=== PATIENT | female | born 1940 | race Caucasian/White ===

== ENCOUNTER → 2017-03-30 | Outpatient (CLI) | payer MEDICARE, OTHER ==
--- NOTE | 2017-03-31 10:53 | MM ---
Reason for exam: screening (asymptomatic). Last mammogram was performed 1 year ago. History: Patient is postmenopausal. Took hormonal contraceptives for 4 years beginning at age 22. Took estrogen for 10 years beginning at age 51. Took progesterone for 10 years beginning at age 51. Physical Findings: A clinical breast exam by your physician is recommended on an annual basis and results should be correlated with mammographic findings. MG 3D Screening Mammo W/Cad Bilateral CC and MLO view(s) were taken. Prior study comparison: March 26, 2016, bilateral MG 3d screening mammo w/cad. March 21, 2015, bilateral MG screening mammo w CAD. There are scattered fibroglandular densities. Focal asymmetry upper central right breast is stable. No significant changes when compared with prior studies. ASSESSMENT: Benign, BI-RAD 2 RECOMMENDATION: Routine screening mammogram of both breasts in 1 year.
== END | disposition home or self-care (01) ==
LOC: RADMAMWWP 10:40
PROVIDERS: ATTEND Obstetrics & Gynecology
DX: Z12.31 Encounter for screening mammogram for malignant neoplasm of breast (principal)
CPT/HCPCS: 77063; G0202

== ENCOUNTER 2017-03-31 15:27 | Observation (INO) | payer MEDICARE, OTHER ==
[2017-03-31] MEDS ORDERED: SODIUM CHLORIDE 0.9% 1,000 ML IV STA (15:53)
[2017-03-31] MEDS ORDERED: SODIUM CHLORIDE 0.9% 500 ML IV STA (15:53)
--- NOTE | 2017-03-31 16:03 | ED ---
General Adult HPI - General Chief complaint: Syncope Stated complaint: Syncope Time Seen by Provider: 03/31/17 15:52 Source: patient, RN notes reviewed, old records reviewed Mode of arrival: wheelchair Limitations: no limitations - History of Present Illness Initial comments: This is a 76-year-old female the ER for evaluation of significant syncopal. Patient states she has history of similar event before bed this time denies history of headache chest pain shortness of breath or abdominal pain. Patient' s at bedside asystole for event. There eating breakfast today. Patient became unresponsive and he believes stop breathing, she did mildly change colors but he states that time he did check a blood pressure she had a blood pressure. He did the resuscitation with breathing and CPR. States it lasted for about 15 minutes and now patient's pertinent to emergency room. Patient is currently wide-awake and alert able to answer questions appropriately and has no complaints - Related Data Home Medications Medication Instructions Recorded Confirmed Ascorbic Acid [Vitamin C] 500 mg PO DAILY 03/31/17 03/31/17 Aspirin 325 mg PO DAILY 03/31/17 03/31/17 Atorvastatin [Lipitor] 10 mg PO HS 03/31/17 03/31/17 Calcium Carbonate [Calcium] 600 mg PO BID 03/31/17 03/31/17 Cholecalciferol [Vitamin D3] 1,000 unit PO DAILY 03/31/17 03/31/17 Glucosamine Sulfate 500 mg PO HS 03/31/17 03/31/17 Multivitamins, Thera [Multivitamin 1 tab PO DAILY 03/31/17 03/31/17 (formulary)] [place]-3 Fatty Acids/Fish Oil [Fish 1 cap PO DAILY 03/31/17 03/31/17 Oil 1,000 mg Softgel] Omeprazole [PriLOSEC] 20 mg PO QAM 03/31/17 03/31/17 Phytonadione [Vitamin K] 5 mg PO DAILY 03/31/17 03/31/17 Soy Isoflavone 50 mg PO DAILY 03/31/17 03/31/17 Ubiquinol 100 mg PO DAILY 03/31/17 03/31/17 Vitamin E (Dl,Tocopheryl Acet) 400 unit PO DAILY 03/31/17 03/31/17 [Vitamin E] Zinc 50 mg PO DAILY 03/31/17 03/31/17 Allergies Allergy/AdvReac Type Severity Reaction Status Date / Time No Known Allergies Allergy Verified 03/31/17 16:26 Review of Systems ROS Statement: Those systems with pertinent positive or pertinent negative responses have been documented in the HPI. ROS Other: All systems not noted in ROS Statement are negative. Past Medical History Past Medical History: GERD/Reflux, Hyperlipidemia History of Any Multi-Drug Resistant Organisms: None Reported Past Surgical History: No Surgical Hx Reported Past Psychological History: No Psychological Hx Reported Smoking Status: Never smoker Past Alcohol Use History: None Reported Past Drug Use History: None Reported General Exam Limitations: no limitations General appearance: alert, in no apparent distress Head exam: Present: atraumatic, normocephalic, normal inspection Eye exam: Present: normal appearance, PERRL, EOMI. Absent: scleral icterus, conjunctival injection, periorbital swelling ENT exam: Present: normal exam, mucous membranes moist Neck exam: Present: normal inspection. Absent: tenderness, meningismus, lymphadenopathy Respiratory exam: Present: normal lung sounds bilaterally. Absent: respiratory distress, wheezes, rales, rhonchi, stridor Cardiovascular Exam: Present: regular rate, normal rhythm, normal heart sounds. Absent: systolic murmur, diastolic murmur, rubs, gallop, clicks GI/Abdominal exam: Present: soft, normal bowel sounds. Absent: distended, tenderness, guarding, rebound, rigid Extremities exam: Present: normal inspection, full ROM, normal capillary refill. Absent: tenderness, pedal edema, joint swelling, calf tenderness Back exam: Present: normal inspection Neurological exam: Present: alert, oriented X3, CN II-XII intact Psychiatric exam: Present: normal affect, normal mood Skin exam: Present: warm, dry, intact, normal color. Absent: rash Course Vital Signs 03/31/17 03/31/17 15:31 16:09 Temperature 98.0 F Pulse Rate 83 80 Respiratory 18 19 Rate Blood Pressure 133/64 142/66 O2 Sat by Pulse 99 97 Oximetry - Reevaluation(s) Reevaluation #1: 03/31/17 17:18 no syncopal events and no change in symptoms, asymptomatic EKG Findings - EKG Comments: EKG Findings:: EKG shows normal sinus a rate of 81, OH 172, QRS 72, QTc 462 Medical Decision Making - Medical Decision Making 76 female to the ED after syncopal event, per family member gave CPR, patient currently without complaint, ok for admission and cardiac evaluation - Lab Data Result diagrams: 03/31/17 16:06 03/31/17 16:06 Lab Results 03/31/17 03/31/17 03/31/17 Range/Units 16:03 16:06 16:06 WBC 6.0 (3.8-10.6) k/uL RBC 4.64 (3.80-5.40) m/uL Hgb 14.2 (11.4-16.0) gm/dL Hct 42.5 (34.0-46.0) % MCV 91.8 (80.0-100.0) fL MCH 30.7 (25.0-35.0) pg MCHC 33.4 (31.0-37.0) g/dL RDW 14.5 (11.5-15.5) % Plt Count 168 (150-450) k/uL Neutrophils % 90 % Lymphocytes % 4 % Monocytes % 4 % Eosinophils % 1 % Basophils % 0 % Neutrophils # 5.4 (1.3-7.7) k/uL Lymphocytes # 0.3 L (1.0-4.8) k/uL Monocytes # 0.2 (0-1.0) k/uL Eosinophils # 0.0 (0-0.7) k/uL Basophils # 0.0 (0-0.2) k/uL PT (9.0-12.0) sec INR (<1.2) APTT (22.0-30.0) sec D-Dimer (<0.60) mg/L FEU Sodium (137-145) mmol/L Potassium (3.5-5.1) mmol/L Chloride (98-107) mmol/L Carbon Dioxide (22-30) mmol/L Anion Gap mmol/L BUN (7-17) mg/dL Creatinine (0.52-1.04) mg/dL Est GFR (MDRD) Af Amer (>60 ml/min/1.73 sqM) Est GFR (MDRD) Non-Af (>60 ml/min/1.73 sqM) Glucose (74-99) mg/dL POC Glucose (mg/dL) 129 H (75-99) mg/dL POC Glu Paralegal Assistant ID [place] Plasma Lactic Acid Tor (0.7-2.0) mmol/L Calcium (8.4-10.2) mg/dL Phosphorus (2.5-4.5) mg/dL Magnesium (1.6-2.3) mg/dL Total Bilirubin (0.2-1.3) mg/dL AST (14-36) U/L ALT (9-52) U/L Alkaline Phosphatase (38-126) U/L Total Creatine Kinase 66 (30-135) U/L CK-MB (CK-2) 1.0 (0.0-2.4) ng/mL CK-MB (CK-2) Rel Index 1.5 Troponin I <0.012 (0.000-0.034) ng/mL NT-Pro-B Natriuret Pep pg/mL Total Protein (6.3-8.2) g/dL Albumin (3.5-5.0) g/dL Urine Color Urine Appearance (Clear) Urine pH (5.0-8.0) Ur Specific [place] (1.001-1.035) Urine Protein (Negative) Urine Glucose (UA) (Negative) Urine Ketones (Negative) Urine Blood (Negative) Urine Nitrite (Negative) Urine Bilirubin (Negative) Urine Urobilinogen (<2.0) mg/dL Ur Leukocyte Esterase (Negative) 03/31/17 03/31/17 03/31/17 Range/Units 16:06 16:06 16:06 WBC (3.8-10.6) k/uL RBC (3.80-5.40) m/uL Hgb (11.4-16.0) gm/dL Hct (34.0-46.0) % MCV (80.0-100.0) fL MCH (25.0-35.0) pg MCHC (31.0-37.0) g/dL RDW (11.5-15.5) % Plt Count (150-450) k/uL Neutrophils % % Lymphocytes % % Monocytes % % Eosinophils % % Basophils % % Neutrophils # (1.3-7.7) k/uL Lymphocytes # (1.0-4.8) k/uL Monocytes # (0-1.0) k/uL Eosinophils # (0-0.7) k/uL Basophils # (0-0.2) k/uL PT 10.5 (9.0-12.0) sec INR 1.0 (<1.2) APTT 22.8 (22.0-30.0) sec D-Dimer 0.56 (<0.60) mg/L FEU Sodium 138 (137-145) mmol/L Potassium 4.5 (3.5-5.1) mmol/L Chloride 102 (98-107) mmol/L Carbon Dioxide 24 (22-30) mmol/L Anion Gap 12 mmol/L BUN 16 (7-17) mg/dL Creatinine 0.78 (0.52-1.04) mg/dL Est GFR (MDRD) Af Amer >60 (>60 ml/min/1.73 sqM) Est GFR (MDRD) Non-Af >60 (>60 ml/min/1.73 sqM) Glucose 114 H (74-99) mg/dL POC Glucose (mg/dL) (75-99) mg/dL POC Glu Paralegal Assistant ID Plasma Lactic Acid Tor (0.7-2.0) mmol/L Calcium 9.1 (8.4-10.2) mg/dL Phosphorus 4.0 (2.5-4.5) mg/dL Magnesium 2.1 (1.6-2.3) mg/dL Total Bilirubin 0.6 (0.2-1.3) mg/dL AST 28 (14-36) U/L ALT 39 (9-52) U/L Alkaline Phosphatase 53 (38-126) U/L Total Creatine Kinase (30-135) U/L CK-MB (CK-2) (0.0-2.4) ng/mL CK-MB (CK-2) Rel Index Troponin I (0.000-0.034) ng/mL NT-Pro-B Natriuret Pep 127 pg/mL Total Protein 7.5 (6.3-8.2) g/dL Albumin 4.4 (3.5-5.0) g/dL Urine Color Urine Appearance (Clear) Urine pH (5.0-8.0) Ur Specific [place] (1.001-1.035) Urine Protein (Negative) Urine Glucose (UA) (Negative) Urine Ketones (Negative) Urine Blood (Negative) Urine Nitrite (Negative) Urine Bilirubin (Negative) Urine Urobilinogen (<2.0) mg/dL Ur Leukocyte Esterase (Negative) 03/31/17 03/31/17 Range/Units 16:11 16:43 WBC (3.8-10.6) k/uL RBC (3.80-5.40) m/uL Hgb (11.4-16.0) gm/dL Hct (34.0-46.0) % MCV (80.0-100.0) fL MCH (25.0-35.0) pg MCHC (31.0-37.0) g/dL RDW (11.5-15.5) % Plt Count (150-450) k/uL Neutrophils % % Lymphocytes % % Monocytes % % Eosinophils % % Basophils % % Neutrophils # (1.3-7.7) k/uL Lymphocytes # (1.0-4.8) k/uL Monocytes # (0-1.0) k/uL Eosinophils # (0-0.7) k/uL Basophils # (0-0.2) k/uL PT (9.0-12.0) sec INR (<1.2) APTT (22.0-30.0) sec D-Dimer (<0.60) mg/L FEU Sodium (137-145) mmol/L Potassium (3.5-5.1) mmol/L Chloride (98-107) mmol/L Carbon Dioxide (22-30) mmol/L Anion Gap mmol/L BUN (7-17) mg/dL Creatinine (0.52-1.04) mg/dL Est GFR (MDRD) Af Amer (>60 ml/min/1.73 sqM) Est GFR (MDRD) Non-Af (>60 ml/min/1.73 sqM) Glucose (74-99) mg/dL POC Glucose (mg/dL) (75-99) mg/dL POC Glu Paralegal Assistant ID Plasma Lactic Acid Tor 1.0 (0.7-2.0) mmol/L Calcium (8.4-10.2) mg/dL Phosphorus (2.5-4.5) mg/dL Magnesium (1.6-2.3) mg/dL Total Bilirubin (0.2-1.3) mg/dL AST (14-36) U/L ALT (9-52) U/L Alkaline Phosphatase (38-126) U/L Total Creatine Kinase (30-135) U/L CK-MB (CK-2) (0.0-2.4) ng/mL CK-MB (CK-2) Rel Index Troponin I (0.000-0.034) ng/mL NT-Pro-B Natriuret Pep pg/mL Total Protein (6.3-8.2) g/dL Albumin (3.5-5.0) g/dL Urine Color Yellow Urine Appearance Clear (Clear) Urine pH 6.5 (5.0-8.0) Ur Specific [place] 1.017 (1.001-1.035) Urine Protein Trace H (Negative) Urine Glucose (UA) Negative (Negative) Urine Ketones 2+ H (Negative) Urine Blood Negative (Negative) Urine Nitrite Negative (Negative) Urine Bilirubin Negative (Negative) Urine Urobilinogen <2.0 (<2.0) mg/dL Ur Leukocyte Esterase Negative (Negative) Disposition Clinical Impression: Vasovagal syncope Disposition: HOME SELF-CARE Condition: Good Instructions: Syncope (ED) Referrals: Camden Allred MD [Primary Care Provider] - 1-2 days
[2017-03-31 16:06] LABS: Glucose,Whole Blood 129 mg/dL (75-99)
[2017-03-31 16:21] LABS: Basophils % (A) 0 %; CH 31.4; CHCM 34.4; Eosinophils % (A) 1 %; HCT 42.5 % (34.0-46.0); HDW 2.25; HGB 14.2 gm/dL (11.4-16.0); Luc # (Auto) 0.07; Luc % (Auto) 1; Lymphocytes # (A) 0.3 k/uL (1.0-4.8); Lymphocytes % (A) 4 %; MCH 30.7 pg (25.0-35.0); MCHC 33.4 g/dL (31.0-37.0); MCV 91.8 fL (80.0-100.0); Mean Platelet Volume 7.8; Monocytes # (A) 0.2 k/uL (0-1.0); Monocytes % (A) 4 %; Neutrophils # (A) 5.4 k/uL (1.3-7.7); Neutrophils % (A) 90 %; RBC 4.64 m/uL (3.80-5.40); RDW 14.5 % (11.5-15.5); WBC (Perox) 6.63
[2017-03-31 16:38] LABS: ALT 39 U/L (9-52); AST 28 U/L (14-36); Alkaline Phosphatase 53 U/L (38-126); Anion Gap 12 mmol/L; Blood Urea Nitrogen 16 mg/dL (7-17); Calcium 9.1 mg/dL (8.4-10.2); Carbon Dioxide 24 mmol/L (22-30); Chloride 102 mmol/L (98-107); Glucose 114 mg/dL (74-99); Magnesium 2.1 mg/dL (1.6-2.3); Non-African American GFR(MDRD) >60 (>60 ml/min/1.73 sqM); Potassium 4.5 mmol/L (3.5-5.1); Sodium 138 mmol/L (137-145); Total Bilirubin 0.6 mg/dL (0.2-1.3); Total Protein 7.5 g/dL (6.3-8.2)
[2017-03-31 16:41] LABS: Creatine Kinase 66 U/L (30-135)
[2017-03-31 16:42] LABS: Partial Thromboplastin Time 22.8 sec (22.0-30.0); Prothrombin Time 10.5 sec (9.0-12.0)
[2017-03-31 16:53] LABS: Troponin I <0.012 ng/mL (0.000-0.034)
[2017-03-31 16:53] LABS: Appearance,Urine Clear (Clear); Bilirubin,Urine Negative (Negative); Glucose,Urine (UA) Negative (Negative); Ketones,Urine 2+ (Negative); Leukocyte Esterase,Urine Negative (Negative); Nitrite,Urine Negative (Negative); PH, Urine 6.5 (5.0-8.0); Protein,Urine Trace (Negative); Specific Gravity,Urine 1.017 (1.001-1.035); UA Billing (MACRO vs. MICRO) CHEM; Urobilinogen,Urine <2.0 mg/dL (<2.0)
[2017-03-31] MEDS ORDERED: NITROGLYCERIN SL TABS 0.4 MG TAB SUBLINGUAL PRN (17:11)
--- NOTE | 2017-03-31 17:19 | ED ---
Medical Decision Making - Lab Data Result diagrams: 03/31/17 16:06 03/31/17 16:06 Lab Results 03/31/17 03/31/17 03/31/17 Range/Units 16:03 16:06 16:06 WBC 6.0 (3.8-10.6) k/uL RBC 4.64 (3.80-5.40) m/uL Hgb 14.2 (11.4-16.0) gm/dL Hct 42.5 (34.0-46.0) % MCV 91.8 (80.0-100.0) fL MCH 30.7 (25.0-35.0) pg MCHC 33.4 (31.0-37.0) g/dL RDW 14.5 (11.5-15.5) % Plt Count 168 (150-450) k/uL Neutrophils % 90 % Lymphocytes % 4 % Monocytes % 4 % Eosinophils % 1 % Basophils % 0 % Neutrophils # 5.4 (1.3-7.7) k/uL Lymphocytes # 0.3 L (1.0-4.8) k/uL Monocytes # 0.2 (0-1.0) k/uL Eosinophils # 0.0 (0-0.7) k/uL Basophils # 0.0 (0-0.2) k/uL PT (9.0-12.0) sec INR (<1.2) APTT (22.0-30.0) sec D-Dimer (<0.60) mg/L FEU Sodium (137-145) mmol/L Potassium (3.5-5.1) mmol/L Chloride (98-107) mmol/L Carbon Dioxide (22-30) mmol/L Anion Gap mmol/L BUN (7-17) mg/dL Creatinine (0.52-1.04) mg/dL Est GFR (MDRD) Af Amer (>60 ml/min/1.73 sqM) Est GFR (MDRD) Non-Af (>60 ml/min/1.73 sqM) Glucose (74-99) mg/dL POC Glucose (mg/dL) 129 H (75-99) mg/dL POC Glu Marketing Technology Coordinator ID [place], [place] Plasma Lactic Acid Tor (0.7-2.0) mmol/L Calcium (8.4-10.2) mg/dL Phosphorus (2.5-4.5) mg/dL Magnesium (1.6-2.3) mg/dL Total Bilirubin (0.2-1.3) mg/dL AST (14-36) U/L ALT (9-52) U/L Alkaline Phosphatase (38-126) U/L Total Creatine Kinase 66 (30-135) U/L CK-MB (CK-2) 1.0 (0.0-2.4) ng/mL CK-MB (CK-2) Rel Index 1.5 Troponin I <0.012 (0.000-0.034) ng/mL NT-Pro-B Natriuret Pep pg/mL Total Protein (6.3-8.2) g/dL Albumin (3.5-5.0) g/dL Urine Color Urine Appearance (Clear) Urine pH (5.0-8.0) Ur Specific [place] (1.001-1.035) Urine Protein (Negative) Urine Glucose (UA) (Negative) Urine Ketones (Negative) Urine Blood (Negative) Urine Nitrite (Negative) Urine Bilirubin (Negative) Urine Urobilinogen (<2.0) mg/dL Ur Leukocyte Esterase (Negative) 03/31/17 03/31/17 03/31/17 Range/Units 16:06 16:06 16:06 WBC (3.8-10.6) k/uL RBC (3.80-5.40) m/uL Hgb (11.4-16.0) gm/dL Hct (34.0-46.0) % MCV (80.0-100.0) fL MCH (25.0-35.0) pg MCHC (31.0-37.0) g/dL RDW (11.5-15.5) % Plt Count (150-450) k/uL Neutrophils % % Lymphocytes % % Monocytes % % Eosinophils % % Basophils % % Neutrophils # (1.3-7.7) k/uL Lymphocytes # (1.0-4.8) k/uL Monocytes # (0-1.0) k/uL Eosinophils # (0-0.7) k/uL Basophils # (0-0.2) k/uL PT 10.5 (9.0-12.0) sec INR 1.0 (<1.2) APTT 22.8 (22.0-30.0) sec D-Dimer 0.56 (<0.60) mg/L FEU Sodium 138 (137-145) mmol/L Potassium 4.5 (3.5-5.1) mmol/L Chloride 102 (98-107) mmol/L Carbon Dioxide 24 (22-30) mmol/L Anion Gap 12 mmol/L BUN 16 (7-17) mg/dL Creatinine 0.78 (0.52-1.04) mg/dL Est GFR (MDRD) Af Amer >60 (>60 ml/min/1.73 sqM) Est GFR (MDRD) Non-Af >60 (>60 ml/min/1.73 sqM) Glucose 114 H (74-99) mg/dL POC Glucose (mg/dL) (75-99) mg/dL POC Glu Marketing Technology Coordinator ID Plasma Lactic Acid Tor (0.7-2.0) mmol/L Calcium 9.1 (8.4-10.2) mg/dL Phosphorus 4.0 (2.5-4.5) mg/dL Magnesium 2.1 (1.6-2.3) mg/dL Total Bilirubin 0.6 (0.2-1.3) mg/dL AST 28 (14-36) U/L ALT 39 (9-52) U/L Alkaline Phosphatase 53 (38-126) U/L Total Creatine Kinase (30-135) U/L CK-MB (CK-2) (0.0-2.4) ng/mL CK-MB (CK-2) Rel Index Troponin I (0.000-0.034) ng/mL NT-Pro-B Natriuret Pep 127 pg/mL Total Protein 7.5 (6.3-8.2) g/dL Albumin 4.4 (3.5-5.0) g/dL Urine Color Urine Appearance (Clear) Urine pH (5.0-8.0) Ur Specific [place] (1.001-1.035) Urine Protein (Negative) Urine Glucose (UA) (Negative) Urine Ketones (Negative) Urine Blood (Negative) Urine Nitrite (Negative) Urine Bilirubin (Negative) Urine Urobilinogen (<2.0) mg/dL Ur Leukocyte Esterase (Negative) 09/13/17 09/13/17 Range/Units 16:11 16:43 WBC (3.8-10.6) k/uL RBC (3.80-5.40) m/uL Hgb (11.4-16.0) gm/dL Hct (34.0-46.0) % MCV (80.0-100.0) fL MCH (25.0-35.0) pg MCHC (31.0-37.0) g/dL RDW (11.5-15.5) % Plt Count (150-450) k/uL Neutrophils % % Lymphocytes % % Monocytes % % Eosinophils % % Basophils % % Neutrophils # (1.3-7.7) k/uL Lymphocytes # (1.0-4.8) k/uL Monocytes # (0-1.0) k/uL Eosinophils # (0-0.7) k/uL Basophils # (0-0.2) k/uL PT (9.0-12.0) sec INR (<1.2) APTT (22.0-30.0) sec D-Dimer (<0.60) mg/L FEU Sodium (137-145) mmol/L Potassium (3.5-5.1) mmol/L Chloride (98-107) mmol/L Carbon Dioxide (22-30) mmol/L Anion Gap mmol/L BUN (7-17) mg/dL Creatinine (0.52-1.04) mg/dL Est GFR (MDRD) Af Amer (>60 ml/min/1.73 sqM) Est GFR (MDRD) Non-Af (>60 ml/min/1.73 sqM) Glucose (74-99) mg/dL POC Glucose (mg/dL) (75-99) mg/dL POC Glu Marketing Technology Coordinator ID Plasma Lactic Acid Tor 1.0 (0.7-2.0) mmol/L Calcium (8.4-10.2) mg/dL Phosphorus (2.5-4.5) mg/dL Magnesium (1.6-2.3) mg/dL Total Bilirubin (0.2-1.3) mg/dL AST (14-36) U/L ALT (9-52) U/L Alkaline Phosphatase (38-126) U/L Total Creatine Kinase (30-135) U/L CK-MB (CK-2) (0.0-2.4) ng/mL CK-MB (CK-2) Rel Index Troponin I (0.000-0.034) ng/mL NT-Pro-B Natriuret Pep pg/mL Total Protein (6.3-8.2) g/dL Albumin (3.5-5.0) g/dL Urine Color Yellow Urine Appearance Clear (Clear) Urine pH 6.5 (5.0-8.0) Ur Specific [place] 1.017 (1.001-1.035) Urine Protein Trace H (Negative) Urine Glucose (UA) Negative (Negative) Urine Ketones 2+ H (Negative) Urine Blood Negative (Negative) Urine Nitrite Negative (Negative) Urine Bilirubin Negative (Negative) Urine Urobilinogen <2.0 (<2.0) mg/dL Ur Leukocyte Esterase Negative (Negative) Disposition Clinical Impression: Vasovagal syncope Disposition: ADMITTED IP TO THIS HOSP Condition: Good Instructions: Syncope (ED) Referrals: Camden Allred MD [Primary Care Provider] - 1-2 days
[2017-03-31] MEDS ORDERED: ONDANSETRON 4 MG/2 ML VIAL IVP PRN (17:49)
[2017-03-31] MEDS ORDERED: NALOXONE 0.4 MG/ML 1 ML VIAL IV PRN (17:49)
--- NOTE | 2017-03-31 18:06 | P.HPIM ---
History of Present Illness H&P Date: 03/31/17 Chief Complaint: Syncopal episode The patient is a 76-year-old female with a past medical history of GERD who presented to the ER by EMS after having a syncopal episode earlier today Apparently the patient complained of not feeling well early this morning, and within minutes she reportedly passed out and stopped breathing per her , The patient was not coherent, he reports a rattle oldest like agonal breaths and proceeded to do chest compressions and rescue breaths, he reports The patient came to and regained consciousness and seemed coherent, but sleepy and tired. She denies any limb movements, or loss of bowel or bladder control Patient does report some dizziness and lightheadedness prior to the episode. During the 5-10 minute episode patient was noted to extremely cold extremities and sweaty forehead per the . Gaining consciousness the patient was extremely nauseated and had an episode of vomiting. The patient denied any chest pain Shortness of air and otherwise has no complaints. Had this episode previously several years ago. The ER she had EKG, and normal lab work, noted normal troponins. EKG was normal sinus rhythm Review of Systems All 14 point review systems negative except per HPI Past Medical History Past Medical History: GERD/Reflux, Hyperlipidemia History of Any Multi-Drug Resistant Organisms: None Reported Past Surgical History: No Surgical Hx Reported Past Psychological History: No Psychological Hx Reported Smoking Status: Never smoker Past Alcohol Use History: None Reported Past Drug Use History: None Reported Medications and Allergies Home Medications Medication Instructions Recorded Confirmed Type Ascorbic Acid [Vitamin C] 500 mg PO DAILY 03/31/17 03/31/17 History Aspirin 325 mg PO DAILY 03/31/17 03/31/17 History Atorvastatin [Lipitor] 10 mg PO HS 03/31/17 03/31/17 History Calcium Carbonate [Calcium] 600 mg PO BID 03/31/17 03/31/17 History Cholecalciferol [Vitamin D3] 1,000 unit PO DAILY 03/31/17 03/31/17 History Glucosamine Sulfate 500 mg PO HS 03/31/17 03/31/17 History Multivitamins, Thera [Multivitamin 1 tab PO DAILY 03/31/17 03/31/17 History (formulary)] [place]-3 Fatty Acids/Fish Oil [Fish 1 cap PO DAILY 03/31/17 03/31/17 History Oil 1,000 mg Softgel] Omeprazole [PriLOSEC] 20 mg PO QAM 03/31/17 03/31/17 History Phytonadione [Vitamin K] 5 mg PO DAILY 03/31/17 03/31/17 History Soy Isoflavone 50 mg PO DAILY 03/31/17 03/31/17 History Ubiquinol 100 mg PO DAILY 03/31/17 03/31/17 History Vitamin E (Dl,Tocopheryl Acet) 400 unit PO DAILY 03/31/17 03/31/17 History [Vitamin E] Zinc 50 mg PO DAILY 03/31/17 03/31/17 History Allergies Allergy/AdvReac Type Severity Reaction Status Date / Time No Known Allergies Allergy Verified 03/31/17 16:26 Physical Exam Vitals: Vital Signs Temp Pulse Resp BP Pulse Ox 03/31/17 16:09 80 19 142/66 97 03/31/17 15:31 98.0 F 83 18 133/64 99 Intake and Output 03/31/17 03/31/17 03/31/17 06:59 14:59 22:59 Other: Weight 57.606 kg Patient Weight 04/01/17 06:59 Weight 57.606 kg Constitutional: No acute distress, conversant, pleasant Eyes: Anicteric sclerae, moist conjunctiva, no lid-lag, PERRLA ENMT: NC/AT,Oropharynx clear, no erythema, exudates Neck:Supple, FROM, no masses, or JVD, No carotid bruits; No thyromegaly Lungs: Clear to auscultation, Clear to percussion, Normal respiratory effort, no accessory muscle use Cardiovascular: Heart regular in rate and rhythm, No murmurs, gallops, or rubs no peripheral edema Abdominal: Soft Nontender, nom distended, no guarding, no rebound or rigidity, Normoactive bowel sounds No hepatomegaly, No splenomegaly, No palpable mass No abdominal wall hernia noted Skin: Normal temperature, tone, texture, turgor, No induration No subcutaneous nodules, No rash, lesions, No ulcers Extremities:No digital cyanosis No clubbing, Pedal pulses intact and symmetrical Radial pulses intact and symmetrical Normal gait and station, No calf tenderness Psychiatric: Alert and oriented to person, place and time, Appropriate affect Intact judgement Neuro: Muscles Strength 5/5 in all 4 extremities, Sensation to light touch grossly present throughout, Cranial nerves II-XII grossly intact. No focal sensory deficits Results CBC & Chem 7: 03/31/17 16:06 03/31/17 16:06 Labs: Abnormal Lab Results - Last 24 Hours (Table) 03/31/17 03/31/17 03/31/17 Range/Units 16:03 16:06 16:06 Lymphocytes # 0.3 L (1.0-4.8) k/uL Glucose 114 H (74-99) mg/dL POC Glucose (mg/dL) 129 H (75-99) mg/dL Urine Protein (Negative) Urine Ketones (Negative) 03/31/17 Range/Units 16:43 Lymphocytes # (1.0-4.8) k/uL Glucose (74-99) mg/dL POC Glucose (mg/dL) (75-99) mg/dL Urine Protein Trace H (Negative) Urine Ketones 2+ H (Negative) Thrombosis Risk Factor Assmnt - DVT/VTE Prophylaxis DVT/VTE Prophylaxis: Mechanical Prophylaxis ordered, Low risk, early ambulation encouraged Assessment and Plan (1) Vasovagal syncope Status: Acute (2) GERD (gastroesophageal reflux disease) Status: Acute Plan: Placed in observation anticipate a less than to midnight stay for workup of her vasovagal syncope, patient is placed in observation on telemetry Continue workup by ordering a CT of the head, carotid Dopplers, 2-D echocardiogram with bubble study and orthostatic vital signs. Cardiology Was apparently consulted from the ED follow up with the patient tomorrow. We' ll continue to follow her clinical course Time with Patient: Greater than 30
--- NOTE | 2017-03-31 18:12 | CT ---
EXAMINATION TYPE: CT brain wo con DATE OF EXAM: 03/31/2017 COMPARISON: NONE HISTORY: Patient complains of syncopeal episode today. CT DLP: 1002 mGycm Automated exposure control for dose reduction was used. FINDINGS: Ventricles have normal size. There is no mass effect nor midline shift. There is no sign of intracran ial hemorrhage. There is hypodensity in the white matter of the insula of both temporal lobes. Calvar ium is intact. 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 NO ACUTE INTRACRANIAL ABNORMALITY.
--- NOTE | 2017-03-31 18:19 | XR ---
EXAMINATION TYPE: XR chest 1V DATE OF EXAM: 03/31/2017 COMPARISON: 05/22/2010 syncope HISTORY: Syncope TECHNIQUE: Single frontal view of the chest is obtained. FINDINGS: There is no heart failure nor confluent pneumonic infiltrate. Costophrenic angles are vivian r. There are chest leads. Heart size is normal. IMPRESSION: No cardiopulmonary disease. No change.
[2017-03-31] MEDS ORDERED: ATORVASTATIN 10 MG TAB PO SCH (21:00)
--- NOTE | 2017-03-31 21:05 | US ---
EXAMINATION TYPE: US carotid duplex BILAT DATE OF EXAM: 03/31/2017 COMPARISON: NONE CLINICAL HISTORY: syncope. EXAM MEASUREMENTS: RIGHT: Peak Systolic Velocity (PSV) cm/sec ----- Right CCA: 71.1 ----- Right ICA: 167.7 ----- Right ECA: 132.2 ICA/CCA ratio: 2.3 RIGHT: End Diastole cm/sec ----- Right CCA: 12.9 ----- Right ICA: 41.6 ----- Right ECA: 9.1 LEFT: Peak Systolic Velocity (PSV) cm/sec ----- Left CCA: 60.7 ----- Left ICA: 73.9 ----- Left ECA: 89.8 ICA/CCA ratio: 1.2 LEFT: End Diastole cm/sec ----- Left CCA: 13.1 ----- Left ICA: 17.1 ----- Left ECA: 9.1 VERTEBRALS (direction of flow): Right Vertebral: Antegrade Left Vertebral: Antegrade IMPRESSION: There is antegrade flow in the vertebral arteries. The images and measurements suggest 50-70% stenosis in the right internal carotid artery and close to 25% stenosis in the left internal carotid artery. Criteria for Assigning % of Stenosis / Diameter reduction (Estimation based on the indirect measurements of the internal carotid artery velocities (ICA PSV). 1. Normal (no stenosis)=ICA PSV < 125 cm/s: ratio < 2.0: ICA EDV<40 cm/s. 2. Less than 50% stenosis=ICA PSV < 125 cm/s: ratio < 2.0: ICA EDV<40 cm/s. 3. 50 to 69% stenosis=ICA PSV of 125 to 230 cm/s: ration 2.0 ? 4.0: ICA EDV 40-100 cm/s. 4. Greater than 70% stenosis to near occlusion= ICA PSV > 230 cm/s: ratio > 4.0: ICA EDV > 100 cm/s. 5. Near occlusion= ICA PSV velocities may be low or undetectable: variable ratio and ICA EDV. 6. Total occlusion=unable to detect flow.
[2017-03-31 23:01] LABS: Creatine Kinase 67 U/L (30-135)
[2017-03-31 23:14] LABS: Creatine Kinase MB 1.2 ng/mL (0.0-2.4); Troponin I <0.012 ng/mL (0.000-0.034)
[2017-04-01 04:41] LABS: Cholesterol 122 mg/dL (<200); HDL Cholesterol 44 mg/dL (40-60)
[2017-04-01 04:54] LABS: Creatine Kinase 72 U/L (30-135)
[2017-04-01 05:07] LABS: Creatine Kinase MB 1.2 ng/mL (0.0-2.4); Troponin I <0.012 ng/mL (0.000-0.034)
[2017-04-01] MEDS ORDERED: PANTOPRAZOLE 40 MG TABLET PO SCH (07:30)
--- NOTE | 2017-04-01 07:46 | CONS ---
CONSULTATION This is a 76-year-old, delightful lady with a history of gastroesophageal reflux syndrome who takes omeprazole. She also has hyperlipidemia, takes atorvastatin. She is a quite active person. She and her run [employer] in the [facility]. She came in yesterday because of an episode of syncope. The day before she had some injections taken for her tetanus toxoid and also flu vaccine then she felt punky the morning of yesterday and was having some nausea, feeling of sensation that she may throw up. Then she thought maybe she should eat some breakfast. She made herself a whole breakfast, 3 eggs and ate the entire breakfast and also had 3 cups of coffee and following that she was sitting at the dining table. Dryden queasy to our stomach and felt she may throw up and the next minute she noticed that she had passed out and her apparently almost did CPR and then she threw up the entire food on the breakfast table and then after that, she was awake. Her called a doctor friend and then drove her to the hospital. It appears that this is a very significant vasovagal syncope precipitated by nausea, queasiness and a full stomach. She has had a similar episode about 5 months ago when she had some dental work done as well. After she went home with pain medications and felt nauseated after codeine. She is asymptomatic ambulating without symptoms. Her troponins are normal. Her vital signs are normal. She has not had any significant arrhythmia on the monitor. She is in a sinus rhythm, resting comfortably at the time of my evaluation, and indicates to me that she would like to go home. PAST MEDICAL HISTORY: 1. Hyperlipidemia. 2. Gastroesophageal reflux disease. 3. No evidence of hypertension, diabetes, myocardial infarction or CVA. 4. Prior history of vasovagal syncope but not as severe as this episode. PHYSICAL EXAMINATION: On examination, blood pressure is 118/70, pulse rate is about 70 per minute, regular. HEENT: Unremarkable. Fundus was not examined by me. Neck is supple. No JVD. I do not hear a carotid bruit. There is no thyromegaly. Heart exam reveals S1, S2 heard normally. No significant murmurs. Lungs are clear. Abdomen is soft, nontender. Lower extremities reveal palpable pulses. No edema. Central nervous system is normal. EKG revealed sinus mechanism; no acute changes. LABORATORY DATA: Laboratory data revealed the troponins are normal. Her BNP is normal. Electrolyte profile is normal. D-dimer is normal. IMPRESSION: 1. Vasovagal syncope, somewhat severe reaction and this is not new. Patient has had this episode before. 2. Gastroesophageal reflux disease. 3. History of hyperlipidemia. RECOMMENDATIONS: I am recommending an echocardiogram and a carotid Doppler study was already performed and there is no hemodynamically significant lesion in the carotids. There is a moderate lesion in the right side and very insignificant lesion in the left internal carotid and vertebral flow is antegrade direction bilaterally. Echocardiogram will be performed today. No further intervention necessary, but I have advised her not to consume any foods when she is nauseated and when she has the earliest tendency to lie down and keep her feet up as much as possible and to stay well hydrated and avoid caffeine, which is a diuretic. She can be discharged later on today after she is ambulatory and echo has been performed and I will speak to her . Thank you very much for the consult. MMSIA / IJN: [id number] /
[2017-04-01] MEDS ORDERED: RX INFO: IV CONTRAST WAS GIVEN 1 EACH MISC MISCELLANE PRN (07:49)
[2017-04-01 07:52] VITALS: RESP 16
[2017-04-01] MEDS ORDERED: ASPIRIN 325 MG TAB PO SCH ×2 (09:00)
--- NOTE | 2017-04-01 09:21 | CT ---
EXAMINATION TYPE: CT angio neck DATE OF EXAM: 04/01/2017 COMPARISON: NONE HISTORY: right ica stenosis CT DLP: 166.10 mGycm CONTRAST: CTA cervical carotids is performed and with IV Contrast, patient injected with 65 mL of Omnipaque 350 . Contrast CTA of the cervical carotids was performed 3-D reconstruction imaging obtained at a separate workstation. Right carotid system: Mild plaque is seen of the right common carotid artery. There is mild plaque a lso noted at the carotid bulb. Estimated diameter reduction is less than 50%. ECA is patent. Righ t vertebral artery appears unremarkable. Left carotid system: Mild plaque is seen of the left common carotid artery. There is mild plaque als o noted at the carotid bulb. Estimated diameter reduction is less than 25%. ECA is patent. Left ve rtebral artery appears unremarkable. Incidental degenerative disc space narrowing and spondylosis of the cervical spine greatest at C5-6. Left-sided thyroid nodularity. IMPRESSION: 1. Estimated diameter reduction Right ICA less than 50% 2. Estimated diameter reduction Left ICA less than 25%
[2017-04-01] MEDS: SODIUM CHLORIDE 0.9% 1,000 ML IV SCH ×3 (09:28→15:00)
[2017-04-01 11:52] VITALS: BP 125/73; PULSE 77; TEMP 98.1
--- NOTE | 2017-04-01 14:02 | P.DS ---
Providers Date of admission: 03/31/17 17:12 Expected date of discharge: 04/01/17 Attending physician: Marcell Tovar MD Consults: 03/31/17 17:12 Consult Physician Urgent Consulting Provider: Zacarias Kang Consult Reason/Comments: syncope Do you want consulting provider notified?: Yes Primary care physician: Camden Allred - Discharge Diagnosis(es) (1) Vasovagal syncope Current Visit: Yes Status: Acute (2) GERD (gastroesophageal reflux disease) Current Visit: Yes Status: Acute Hospital Course: The patient is a 76-year-old female with no significant medical history who presented to the ER after a vasovagal syncopal episode at home That was related to the consumption of breakfast and coffee, apparently there was loss of consciousness. While hospitalized the patient had normal labs and negative orthostatic vital signs. ETA of the head was negative for any acute intracranial pathology, carotid Dopplers suggested a right Internal carotid stenosis 50-70%, CT angiography of the neck suggested stenosis of less than 50% associated with non-obstructive carotid artery disease Cardiology was consulted and she was seen by Dr. Chen concurred that it was a vasovagal and recommended that the patient decrease her intake of caffeine. Echocardiogram with bubble studyWas ordered and was pending. This discharge process took less than 30 minutes Patient Condition at Discharge: Good Plan - Discharge Summary New Discharge Prescriptions: No Action Ubiquinol 100 mg PO DAILY Soy Isoflavone 50 mg PO DAILY Aspirin 325 mg PO DAILY Vitamin E (Dl,Tocopheryl Acet) [Vitamin E] 400 unit PO DAILY Phytonadione [Vitamin K] 5 mg PO DAILY [place]-3 Fatty Acids/Fish Oil [Fish Oil 1,000 mg Softgel] 1 cap PO DAILY Cholecalciferol [Vitamin D3] 1,000 unit PO DAILY Omeprazole [PriLOSEC] 20 mg PO QAM Multivitamins, Thera [Multivitamin (formulary)] 1 tab PO DAILY Glucosamine Sulfate 500 mg PO HS Calcium Carbonate [Calcium] 600 mg PO BID Atorvastatin [Lipitor] 10 mg PO HS Ascorbic Acid [Vitamin C] 500 mg PO DAILY Zinc 50 mg PO DAILY Discharge Medication List Ascorbic Acid [Vitamin C] 500 mg PO DAILY 03/31/17 [History] Aspirin 325 mg PO DAILY 03/31/17 [History] Atorvastatin [Lipitor] 10 mg PO HS 03/31/17 [History] Calcium Carbonate [Calcium] 600 mg PO BID 03/31/17 [History] Cholecalciferol [Vitamin D3] 1,000 unit PO DAILY 03/31/17 [History] Glucosamine Sulfate 500 mg PO HS 03/31/17 [History] Multivitamins, Thera [Multivitamin (formulary)] 1 tab PO DAILY 03/31/17 [History ] [place]-3 Fatty Acids/Fish Oil [Fish Oil 1,000 mg Softgel] 1 cap PO DAILY [History] Omeprazole [PriLOSEC] 20 mg PO QAM 03/31/17 [History] Phytonadione [Vitamin K] 5 mg PO DAILY 03/31/17 [History] Soy Isoflavone 50 mg PO DAILY 03/31/17 [History] Ubiquinol 100 mg PO DAILY 03/31/17 [History] Vitamin E (Dl,Tocopheryl Acet) [Vitamin E] 400 unit PO DAILY 03/31/17 [History] Zinc 50 mg PO DAILY 03/31/17 [History] Follow up Appointment(s)/Referral(s): Tahira Chen MD [STAFF PHYSICIAN] - 2 Weeks (Office will call patient at home with date and time.) Camden Allred MD [Primary Care Provider] - 1-2 days Patient Instructions/Handouts: Syncope (ED)
--- NOTE | 2017-04-02 10:38 | ECHOF ---
Referral Reason:syncope MEASUREMENTS -------- HEIGHT: 154.9 cm WEIGHT: 55.3 kg BP: 138/78 RVIDd: 2.9 cm (< 3.3) IVSd: 0.9 cm (0.6 - 1.1) LVIDd: 3.4 cm (3.9 - 5.3) LVPWd: 0.9 cm (0.6 - 1.1) IVSs: 1.2 cm LVIDs: 2.2 cm LVPWs: 1.2 cm LA Diam: 3.2 cm (2.7 - 3.8) LAESV Index (A-L): 13.76 ml/m MV EXCURSION: 12.408 mm (> 18.000) MV EF SLOPE: 46 mm/s (70 - 150) EPSS: 0.4 cm MV E Bradley: 0.93 m/s MV DecT: 188 ms MV A Bradley: 1.17 m/s MV E/A Ratio: 0.80 RAP: 5.00 mmHg RVSP: 28.31 mmHg FINDINGS -------- Sinus rhythm. This was a technically good study. The left ventricular size is normal. Left ventricular wall thickness is normal. Overall left ventricular systolic function is normal with, an EF between 60 - 65 %. The right ventricle is normal in size. Normal LA size by volume 22+/-6 ml/m2. The right atrium is normal in size. The aortic valve is trileaflet and appears structurally normal. Mild mitral regurgitation is present. Mild tricuspid regurgitation present. Right ventricular systolic pressure is normal at < 35 mmHg. Trace/mild (physiologic) pulmonic regurgitation. The aortic root size is normal. The inferior vena cava is mildly dilated. There is no pericardial effusion. CONCLUSIONS -------- 1. Sinus rhythm. 2. Mild mitral regurgitation is present. 3. Mild tricuspid regurgitation present. 4. Right ventricular systolic pressure is normal at < 35 mmHg. 5. Trace/mild (physiologic) pulmonic regurgitation. 6. The aortic root size is normal. 7. The inferior vena cava is mildly dilated. 8. There is no pericardial effusion. 9. This was a technically good study. 10. The left ventricular size is normal. 11. Left ventricular wall thickness is normal. 12. Overall left ventricular systolic function is normal with, an EF between 60 - 65 %. 13. The right ventricle is normal in size. 14. Normal LA size by volume 22+/-6 ml/m2. 15. The right atrium is normal in size. 16. The aortic valve is trileaflet and appears structurally normal. TECHNICAL INSTRUCTOR COURSE DEVELOPER: Lupe De La Cruz RDCS
== END 2017-04-01 14:55 | disposition home or self-care (01) ==
LOC: EC 15:27 → 3OBS 17:12
PROVIDERS: ADMIT Family Medicine; ATTEND Family Medicine
DX: R55 Syncope and collapse (principal); R11.2 Nausea with vomiting, unspecified; K21.9 Gastro-esophageal reflux disease without esophagitis; E78.5 Hyperlipidemia, unspecified; Z79.82 Long term (current) use of aspirin; Z79.899 Other long term (current) drug therapy
CPT/HCPCS: 99285 ×2; 96360 ×2; 96361 ×4; 36415; 93005; 93306; 85379; 83880; 80061; 80053; 82550 ×2; 82553 ×2; 83605; 83735; 84100; 84484 ×2; 85025; 85610; 85730; 81003; 87086; 71010; 93880; 70450; 70498; G0378 ×2; Q9967

== ENCOUNTER → 2018-03-31 | Outpatient (CLI) | payer MEDICARE, OTHER ==
--- NOTE | 2018-04-01 11:35 | MM ---
Reason for exam: screening (asymptomatic). Last mammogram was performed 1 year ago. History: Patient is postmenopausal. Took hormonal contraceptives for 4 years beginning at age 22. Took estrogen for 10 years beginning at age 51. Took progesterone for 10 years beginning at age 51. Physical Findings: A clinical breast exam by your physician is recommended on an annual basis and results should be correlated with mammographic findings. MG 3D Screening Mammo W/Cad Bilateral CC and MLO view(s) were taken. Prior study comparison: March 30, 2017, bilateral MG 3d screening mammo w/cad. March 26, 2016, bilateral MG 3d screening mammo w/cad. There are scattered fibroglandular densities. There are benign appearing round calcifications in the left breast. Asymmetric breast tissue right upper aspect. There is no discrete abnormality. ASSESSMENT: Benign, BI-RAD 2 RECOMMENDATION: Routine screening mammogram of both breasts in 1 year.
== END | disposition home or self-care (01) ==
LOC: RADMAMWWP 10:52
PROVIDERS: ATTEND Internal Medicine
DX: Z12.31 Encounter for screening mammogram for malignant neoplasm of breast (principal)
CPT/HCPCS: 77063; 77067

== ENCOUNTER → 2019-04-04 | Outpatient (CLI) | payer MEDICARE, OTHER ==
--- NOTE | 2019-04-04 12:13 | MM ---
Reason for exam: screening (asymptomatic). Last mammogram was performed 1 year ago. History: Patient is postmenopausal. Took hormonal contraceptives for 4 years beginning at age 22. Took estrogen for 10 years beginning at age 51. Took progesterone for 10 years beginning at age 51. Physical Findings: A clinical breast exam by your physician is recommended on an annual basis and results should be correlated with mammographic findings. MG 3D Screening Mammo W/Cad Bilateral CC and MLO view(s) were taken. Prior study comparison: March 31, 2018, bilateral MG 3d screening mammo w/cad. March 30, 2017, bilateral MG 3d screening mammo w/cad. There are scattered fibroglandular densities. There are benign appearing round calcifications in the left breast. There is no discrete abnormality. ASSESSMENT: Benign, BI-RAD 2 RECOMMENDATION: Routine screening mammogram of both breasts in 1 year.
== END | disposition home or self-care (01) ==
LOC: RADMAMWWP 10:05
PROVIDERS: ATTEND Internal Medicine
DX: Z12.31 Encounter for screening mammogram for malignant neoplasm of breast (principal)
CPT/HCPCS: 77063; 77067

== ENCOUNTER → 2020-04-09 | Outpatient (CLI) | payer MEDICARE, OTHER ==
--- NOTE | 2020-04-10 09:56 | MM ---
Reason for exam: screening (asymptomatic). Last mammogram was performed 1 year ago. History: Patient is postmenopausal. Took hormonal contraceptives for 4 years beginning at age 22. Took estrogen for 10 years beginning at age 51. Took progesterone for 10 years beginning at age 51. Physical Findings: A clinical breast exam by your physician is recommended on an annual basis and results should be correlated with mammographic findings. MG 3D Screening Mammo W/Cad Bilateral CC and MLO view(s) were taken. Prior study comparison: April 04, 2019, bilateral MG 3d screening mammo w/cad. March 31, 2018, bilateral MG 3d screening mammo w/cad. The breast tissue is heterogeneously dense. This may lower the sensitivity of mammography. Focal asymmetry upper outer right breast. ASSESSMENT: Incomplete: need additional imaging evaluation, BI-RAD 0 RECOMMENDATION: Special view mammogram of the right breast. If lesion persists on supplemental views, image directed ultrasound is recommended. [facility] will attempt to contact patient to return for supplemental views and ultrasound if indicated.
== END | disposition home or self-care (01) ==
LOC: RADMAMWWP 10:56
PROVIDERS: ATTEND Family Medicine
DX: Z12.31 Encounter for screening mammogram for malignant neoplasm of breast (principal)
CPT/HCPCS: 77063; 77067

== ENCOUNTER → 2020-04-25 | Outpatient (CLI) | payer MEDICARE, OTHER ==
--- NOTE | 2020-04-25 11:26 | MM ---
Reason for exam: additional evaluation requested from abnormal screening. Last mammogram was performed 1 month ago. History: Patient is postmenopausal. Took hormonal contraceptives for 4 years beginning at age 22. Took estrogen for 10 years beginning at age 51. Took progesterone for 10 years beginning at age 51. Physical Findings: Nurse did not find any significant physical abnormalities on exam. MG 3D Work Up W/Cad RT Spot compression CC, spot compression MLO, and LM view(s) were taken of the right breast. Prior study comparison: April 09, 2020, bilateral MG 3d screening mammo w/cad. April 04, 2019, bilateral MG 3d screening mammo w/cad. The breast tissue is heterogeneously dense. This may lower the sensitivity of mammography. Focal asymmetry on CC compression. These results were verbally communicated with the patient and result sheet given to the patient on 04/25/20. ASSESSMENT: Probably benign, BI-RAD 3 RECOMMENDATION: Follow-up diagnostic mammogram of the right breast in 6 months.
== END | disposition home or self-care (01) ==
LOC: RADMAMWWP 09:20
PROVIDERS: ATTEND Family Medicine
DX: R92.8 Other abnormal and inconclusive findings on diagnostic imaging of breast (principal)
CPT/HCPCS: 77065; G0279; 77061

== ENCOUNTER → 2020-12-03 | Outpatient (CLI) | payer MEDICARE, OTHER ==
--- NOTE | 2020-12-03 11:20 | MM ---
Reason for exam: follow-up at short interval from prior study. Last mammogram was performed 7 months ago. History: Patient is postmenopausal. Took hormonal contraceptives for 4 years beginning at age 22. Took estrogen for 10 years beginning at age 51. Took progesterone for 10 years beginning at age 51. Physical Findings: Nurse did not find any significant physical abnormalities on exam. MG 3D Diag Mammo W/Cad RT CC and MLO view(s) were taken of the right breast. Prior study comparison: April 25, 2020, right breast MG 3d work up w/cad RT. April 09, 2020, bilateral MG 3d screening mammo w/cad. The breast tissue is heterogeneously dense. This may lower the sensitivity of mammography. Stable superior nodule 5cm from nipple. Bilateral follow up in 6 months. These results were verbally communicated with the patient and result sheet given to the patient on 12/03/20. ASSESSMENT: Probably benign, BI-RAD 3 RECOMMENDATION: Follow-up diagnostic mammogram of both breasts in 6 months.
== END | disposition home or self-care (01) ==
LOC: RADMAMWWP 09:31
PROVIDERS: ATTEND Internal Medicine
DX: N63.10 Unspecified lump in the right breast, unspecified quadrant (principal); Z78.0 Asymptomatic menopausal state
CPT/HCPCS: 77065; G0279; 77061